=== PATIENT | male | born 1990 | race African-American/Black ===

== ENCOUNTER 2020-07-21 08:43 | Emergency (ER) | payer SELFPAY ==
[2020-07-21] MEDS ORDERED: Azithromycin 250 MG TAB ONE (09:22)
[2020-07-21] MEDS ORDERED: cefTRIAXone\\ROCEPHIN 500 MG VIAL ONE (09:23)
[2020-07-21] MEDS ORDERED: Lidocaine 1% (PF) 30 ML VIAL ONE (09:23)
[2020-07-21 09:34] LABS: Bilirubin Small (Negative); Blood, Urine Trace (Negative); Clarity Cloudy (Clear); Glucose, Urine (Dipstick) Negative (Negative); Ketone, Urine Trace mg/dL (Negative); Leukocyte Large (Negative); Nitrite Negative (Negative); Protein, Urine (Dipstick) 100 mg/dL (Neg-Trace); Specific Gravity, Urine 1.025 (1.005-1.030); Urobilinogen > or = 8.0 mg/dL (Less than 2)
[2020-07-21 09:46] LABS: Bacteria/HPF 1+ HPF (None Seen); Squamous Epithelial 0-3 HPF (0-3); WBC/HPF 21-50 HPF (0-3)
[2020-07-23 21:47] LABS: Chlam.trachomatis by PCR,Urine Inconclusive (NotDetected)
== END 2020-07-21 09:46 | disposition home or self-care (01) ==
LOC: NAV ERS 08:43
DX: R36.9 Urethral discharge, unspecified (principal); F17.210 Nicotine dependence, cigarettes, uncomplicated
CPT/HCPCS: 81003; 81015; 87491; 87591; 96372; 99284; J0696; J2001

== ENCOUNTER 2020-09-17 07:09 | Emergency (ER) | payer SELFPAY ==
[2020-09-17] MEDS ORDERED: Ibuprofen 800 MG TAB ONE (07:24)
== END 2020-09-17 07:30 | disposition home or self-care (01) ==
LOC: NAV ERS 07:09
DX: K02.9 Dental caries, unspecified (principal); F17.210 Nicotine dependence, cigarettes, uncomplicated
CPT/HCPCS: 99282

== ENCOUNTER 2020-12-25 08:10 | Emergency (ER) | payer SELFPAY ==
[2020-12-25 08:58] LABS: Bilirubin Small (Negative); Blood, Urine Negative (Negative); Clarity Cloudy (Clear); Glucose, Urine (Dipstick) Negative (Negative); Ketone, Urine Negative (Negative); Leukocyte Small (Negative); Nitrite Negative (Negative); Protein, Urine (Dipstick) 30 mg/dL (Neg-Trace); Specific Gravity, Urine 1.025 (1.005-1.030); Urobilinogen > or = 8.0 mg/dL (Less than 2)
[2020-12-25 09:02] LABS: RBC/HPF None Seen HPF (0-3)
[2020-12-25 09:03] LABS: Bacteria/HPF None Seen HPF (None Seen); Squamous Epithelial 0-3 HPF (0-3); WBC/HPF Greater than 50 HPF (0-3)
[2020-12-25] MEDS ORDERED: Lidocaine 1% (PF) 30 ML VIAL ONE (09:06)
[2020-12-25] MEDS ORDERED: Doxycycline 100 MG CAP ONE (09:06)
[2020-12-25] MEDS ORDERED: cefTRIAXone\\ROCEPHIN 500 MG VIAL ONE (09:06)
[2020-12-27 20:35] LABS: Chlam.trachomatis by PCR,Urine Not Detected (NotDetected)
== END 2020-12-25 09:41 | disposition home or self-care (01) ==
LOC: NAV ERS 08:10
DX: N34.1 Nonspecific urethritis (principal); F17.210 Nicotine dependence, cigarettes, uncomplicated
CPT/HCPCS: 81003; 81015; 87086; 87491; 87591; 96372; 99283; J0696; J2001